=== PATIENT | female | born 1955 | race Caucasian/White ===

== ENCOUNTER 2016-11-09 06:37 | Day surgery (SDC) | payer OTHER ==
[~2016-11-09] VITALS: Ht 154.9 cm; Wt 48.4 kg
[2016-11-09 07:26] VITALS: Ht 154.9 cm; Wt 48.4 kg
[2016-11-09] MEDS ORDERED: CARBAMAZEPINE PO (07:32)
[2016-11-09 07:52] VITALS: BP 129/72; PULSE 59; RESP 18
[2016-11-09] MEDS ORDERED: MIDAZOLAM 1 MG/ML 2 ML INJ ONE (08:25)
[2016-11-09] MEDS ORDERED: FENTAnyl 50 MCG/ML VIAL ONE (08:25)
[2016-11-09 08:53] VITALS: BP 136/87; PULSE 58; RESP 14
--- NOTE | 2016-11-13 09:18 | GILP ---
DATE OF PROCEDURE: 11/09/2016 PREOPERATIVE DIAGNOSIS: Screening colonoscopy. Rule out colon polyps. POSTOPERATIVE DIAGNOSES: 1. No polyps noted. 2. Moderate degree of internal and moderate degree of external hemorrhoids were noted. PROCEDURE PERFORMED: Colonoscopy. SURGEON: Chapin Manzanares MD DESCRIPTION OF PROCEDURE: After informed written consent was obtained, the patient was asked to lay on the left lateral side. The patient was given 2 mg Versed and 25 mcg of fentanyl as intravenous anesthesia. When the patient became somnolent, the Olympus video colonoscope was introduced into the rectum and the scope was advanced all the way to the cecum. No polyps or any other mucosal abnormality detected. The scope was withdrawn from the cecum. On the way out, retroflexion was performed and a moderate degree of internal hemorrhoids were noted. When the scope was withdrawn, a moderate degree of external hemorrhoids were noted. PLAN: Recommend Anusol HC suppositories, 1 or 2 into the rectum twice a day for 10 days and then if necessary repeat one more time. I recommend she see a surgeon if bleeding were to occur. Dictated By: Chapin Manzanares MD /[email or web address] /Document#: [id number] ; [facility]
== END 2016-11-09 17:49 | disposition home or self-care (01) ==
LOC: GIL 06:37
PROVIDERS: ATTEND Internal Medicine Gastroenterology
DX: Z12.11 Encounter for screening for malignant neoplasm of colon (principal); K64.8 Other hemorrhoids; K64.4 Residual hemorrhoidal skin tags
CPT/HCPCS: 45378; J2250; J3010; Z7610